=== PATIENT | female | born 1955 | race Caucasian/White ===

== ENCOUNTER 2018-07-06 07:07 | Day surgery (SDC) | payer OTHER, MEDICAID ==
[2018-07-06] MEDS: LACTATED RINGER'S 1,000 ML IV (08:18)
[2018-07-06] MEDS ORDERED: NEOMYC/POLYMYX/BACIT 30 GM OINT (10:21)
[2018-07-06] MEDS ORDERED: LIDOCAINE 1% (MPF) 30 ML INJ (10:27)
[2018-07-06] MEDS ORDERED: morphine 2 MG INJ IV (10:30)
[2018-07-06] MEDS: KETOROLAC 30 MG INJ IV (10:30)
[2018-07-06] MEDS ORDERED: FENTAnyl 50 MCG/ML VIAL (10:39)
[2018-07-06] MEDS ORDERED: CEFAZOLIN 1 GM INJ (11:02)
[2018-07-06] MEDS ORDERED: LIDOCAINE 2% (SDV) 5 ML INJ (11:02)
[2018-07-06] MEDS ORDERED: PROPOFOL 20 ML (11:02)
[2018-07-06] MEDS ORDERED: DEXAMETHASONE 4 MG/ML 5 ML INJ (11:07)
[2018-07-06] MEDS ORDERED: FAMOTIDINE 20 MG INJ (11:07)
[2018-07-06] MEDS ORDERED: ONDANSETRON 4 MG INJ (11:07)
[2018-07-06] MEDS ORDERED: GLYCOPYRROLATE 0.4 MG INJ (11:08)
[2018-07-06] MEDS: POLYMYXIN/BACITRACIN 1L IRRIG (11:27)
[2018-07-06] MEDS: ROPIVACAINE 0.5 % 30 ML VIAL (11:28)
[2018-07-06] MEDS ORDERED: KETOROLAC 30 MG INJ (11:28)
[2018-07-06] MEDS ORDERED: ONDANSETRON 4 MG INJ IV (12:00)
[2018-07-06] MEDS ORDERED: HYDROmorphONE 1 MG/5 ML IV SYRINGE IV ×3 (12:00)
[2018-07-06] MEDS ORDERED: FENTAnyl 50 MCG/ML VIAL IV (12:00)
[2018-07-06] MEDS: OXYCODONE/ACETAMINOPHEN (10/325) TAB PO (14:00)
== END 2018-07-06 14:00 | disposition home or self-care (01) ==
LOC: SDS 07:07
DX: M23.221 Derangement of posterior horn of medial meniscus due to old tear or injury, right knee (principal); M23.251 Derangement of posterior horn of lateral meniscus due to old tear or injury, right knee; M94.261 Chondromalacia, right knee
CPT/HCPCS: 29880; 82306